=== PATIENT | male | born 1965 | race African-American/Black ===

== ENCOUNTER 2019-07-24 10:13 | Emergency (ER) | payer SELFPAY ==
[~2019-07-24] VITALS: Ht 165.1 cm; Wt 65.0 kg
[2019-07-24 11:50] LABS: HEMATOCRIT. 48.1 % (42.0-52.0); HEMOGLOBIN. 16.2 g/dL (14.0-18.0); MEAN CORPUSCULAR HEMOGLOBIN 30.6 pg (28.0-32.0); MEAN CORPUSCULAR VOLUME 90.6 fL (80.0-94.0); MEAN PLATELET VOLUME 8.7 fl (7.4-10.4); PLATELET 257 x1000/uL (130-400); RED BLOOD CELL COUNT 5.31 mill/uL (4.7-6.1); RED CELL DISTRIBUTION WIDTH 13.8 % (11.6-14.6)
[2019-07-24 11:57] LABS: CHLORIDE 104 mEq/L (98-107)
[2019-07-24 12:59] LABS: PLATELET ESTIMATE NORMAL
[2019-07-24 13:37] LABS: CLARITY URINE CLEAR (CLEAR); COLOR URINE YELLOW (YELLOW); KETONES URINE 2+ (NEGATIVE); LEUKOCYTE ESTERASE URINE NEGATIVE (NEGATIVE); NITRITE URINE NEGATIVE (NEGATIVE); OCCULT BLOOD URINE NEGATIVE (NEGATIVE); PROTEIN URINE NEGATIVE (NEGATIVE); UROBILINOGEN URINE 0.2 E.U./dL (0.2-1.0)
[2019-07-24 14:05] LABS: *AMPHETAMINES SCREEN URINE NEGATIVE (NEGATIVE); *BARBITURATES SCREEN URINE NEGATIVE (NEGATIVE); *BENZODIAZEPINES SCREEN URINE NEGATIVE (NEGATIVE); *COCAINE SCREEN URINE NEGATIVE (NEGATIVE); METHADONE URINE SCREEN NEGATIVE (NEGATIVE); OPIATES URINE SCREEN NEGATIVE (NEGATIVE); PHENCYCLIDINE URINE SCREEN NEGATIVE (NEGATIVE)
[2019-07-24 14:06] LABS: CANNABINOID URINE SCREEN NEGATIVE (NEGATIVE)
[2019-07-24] MEDS ORDERED: IBUPROFEN 400MG TABLET PO ONE (17:30)
[2019-07-24 18:12] VITALS: BP 100/62
== END 2019-07-24 18:14 | disposition home or self-care (01) ==
LOC: ER 10:13
DX: M94.0 Chondrocostal junction syndrome [Tietze] (principal); N17.0 Acute kidney failure with tubular necrosis; I25.10 Atherosclerotic heart disease of native coronary artery without angina pectoris; I73.9 Peripheral vascular disease, unspecified; R01.1 Cardiac murmur, unspecified; M43.9 Deforming dorsopathy, unspecified; E86.0 Dehydration; R07.89 Other chest pain; R79.0 Abnormal level of blood mineral; R82.4 Acetonuria; K21.9 Gastro-esophageal reflux disease without esophagitis; I51.9 Heart disease, unspecified; F19.10 Other psychoactive substance abuse, uncomplicated; Z95.1 Presence of aortocoronary bypass graft; Z98.890 Other specified postprocedural states; Z87.09 Personal history of other diseases of the respiratory system
CPT/HCPCS: 36415; 71045; 80053; 80305; 81003; 83605; 83735; 83880; 84484; 85025; 87040; 87086; 93005; 99284; Z7610

== ENCOUNTER 2024-03-26 23:12 | Inpatient (IN) | payer MEDICAID ==
[~2024-03-26] VITALS: Ht 172.7 cm; Wt 63.5 kg
[2024-03-27] MEDS: SODIUM CHLORIDE 0.9% 1,000 ML IV ONE ×2 (00:01→11:15)
[2024-03-27 00:08] LABS: HEMATOCRIT. 44.1 % (42.0-52.0); HEMOGLOBIN. 14.5 g/dL (14.0-18.0); MEAN CORPUSCULAR HEMOGLOBIN 30.1 pg (28.0-32.0); MEAN CORPUSCULAR HGB CONC 32.9 g/dL (31.0-37.0); MEAN CORPUSCULAR VOLUME 91.4 fL (80.0-94.0); MEAN PLATELET VOLUME 8.5 fl (7.4-10.4); PLATELET 196 x1000/uL (130-400); RED BLOOD CELL COUNT 4.82 mill/uL (4.7-6.1); RED CELL DISTRIBUTION WIDTH 13.7 % (11.6-14.6); WHITE BLOOD COUNT 22.2 x1000/uL (4.5-11.0)
[2024-03-27 00:09] LABS: DIFFERENTIAL COMMENT 1
[2024-03-27 00:15] LABS: CARBON DIOXIDE 27 mEq/L (21-32); CHLORIDE 101 mEq/L (98-107); POTASSIUM 3.4 mEq/L (3.5-5.1); SODIUM 135 mEq/L (136-145)
[2024-03-27 00:16] LABS: CALCIUM 8.8 mg/dL (8.7-10.4)
[2024-03-27 00:21] LABS: CREATININE 1.3 mg/dL (0.6-1.3); GLUCOSE 118 mg/dL (70-105); UREA NITROGEN BLOOD 11 mg/dL (9-23)
[2024-03-27 00:40] LABS: TROPONIN I HIGH SENSITIVITY 216 ng/L (3.0-53)
[2024-03-27 01:01] LABS: PLATELET ESTIMATE NORMAL
[2024-03-27] MEDS ORDERED: SODIUM CHLORIDE 0.9% 1,000 ML IV NR (02:00)
[2024-03-27 02:44] LABS: TROPONIN I HIGH SENSITIVITY 223 ng/L (3.0-53)
[2024-03-27 03:04] LABS: CLARITY URINE CLOUDY (CLEAR); COLOR URINE YELLOW (YELLOW); GLUCOSE URINE NEGATIVE (NEGATIVE); KETONES URINE 1+ (NEGATIVE); LEUKOCYTE ESTERASE URINE 2+ (NEGATIVE); NITRITE URINE POSITIVE (NEGATIVE); OCCULT BLOOD URINE 2+ (NEGATIVE); PH URINE 5.5 (4.5-8.0); PROTEIN URINE 1+ (NEGATIVE); SPECIFIC GRAVITY URINE 1.018 (1.005-1.030)
[2024-03-27 03:25] LABS: TROPONIN I HIGH SENSITIVITY 217 ng/L (3.0-53)
[2024-03-27 04:21] LABS: BACTERIA URINE 2+; SQUAMOUS EPITHELIAL CELL URINE NONE SEEN /lpf (RARE/1+)
[2024-03-27] MEDS: MIDODRINE HCL 5MG TABLET PO NR ×2 (05:40→12:53)
[2024-03-27] MEDS: CEFTRIAXONE 1GM/50ML 50 ML IV ONE (05:41)
[2024-03-27] MEDS: SODIUM CHLORIDE 0.9% 1,000 ML IV NR (06:37)
[2024-03-27] MEDS: NOREPINEPHRINE 8MG/250ML PMX 250 ML IV PRN (08:12)
[2024-03-27] MEDS ORDERED: MAGNESIUM/ALUMINUM HYDROXIDE/SIMETHICONE 30ML UDC PO PRN (08:30)
[2024-03-27] MEDS ORDERED: DOCUSATE SODIUM 100MG CAPSULE PO PRN (08:30)
[2024-03-27] MEDS ORDERED: CLONIDINE 0.1MG TABLET PO PRN (08:30)
[2024-03-27] MEDS ORDERED: ONDANSETRON HCL 4MG/2ML INJ IV PRN (08:30)
[2024-03-27] MEDS ORDERED: GUAIFENESIN 200MG/10ML SUGAR FREE UDC PO PRN (08:30)
[2024-03-27] MEDS ORDERED: ACETAMINOPHEN 325MG TABLET PO PRN ×2 (08:30)
[2024-03-27] MEDS ORDERED: IPRATROPIUM/ALBUTEROL 0.5-3(2.5)MG/3ML NEB HHN PRN (08:30)
[2024-03-27] MEDS: ASPIRIN 81MG EC TABLET PO SCH (09:12)
[2024-03-27] MEDS: ENOXAPARIN 40MG/0.4ML SYR SUBCUT SCH (09:17)
[2024-03-27] MEDS: VANCOMYCIN 1.5GM/250ML IV NR (09:18)
[2024-03-27 09:21] LABS: HEMOGLOBIN. 14.4 g/dL (14.0-18.0); MEAN CORPUSCULAR HEMOGLOBIN 30.5 pg (28.0-32.0); MEAN CORPUSCULAR HGB CONC 33.5 g/dL (31.0-37.0); MEAN PLATELET VOLUME 8.6 fl (7.4-10.4); PLATELET 192 x1000/uL (130-400); RED BLOOD CELL COUNT 4.72 mill/uL (4.7-6.1); RED CELL DISTRIBUTION WIDTH 13.7 % (11.6-14.6); WHITE BLOOD COUNT 18.4 x1000/uL (4.5-11.0)
[2024-03-27 09:28] LABS: CHLORIDE 107 mEq/L (98-107); POTASSIUM 3.6 mEq/L (3.5-5.1); SODIUM 138 mEq/L (136-145)
[2024-03-27 09:29] LABS: CALCIUM 8.2 mg/dL (8.7-10.4); CARBON DIOXIDE 22 mEq/L (21-32); DIFFERENTIAL COMMENT 1
[2024-03-27 09:34] LABS: CREATININE 0.9 mg/dL (0.6-1.3); GLUCOSE 107 mg/dL (70-105); UREA NITROGEN BLOOD 7 mg/dL (9-23)
[2024-03-27 09:36] LABS: ALANINE AMINOTRANSFERASE 27 IU/L (10-49); ASPARTATE AMINOTRANSFERASE 27 IU/L (<34); PROTEIN TOTAL 6.9 g/dL (6.0-8.3)
[2024-03-27] MEDS ORDERED: ATOR40TA70 PO (10:56)
[2024-03-27 10:58] LABS: PLATELET ESTIMATE NORMAL
[2024-03-27] MEDS: FAMOTIDINE 20MG TABLET PO SCH (11:00)
[2024-03-27] MEDS: LACTATED RINGERS 1,000 ML IV SCH (11:00)
[2024-03-27] MEDS: MIDODRINE HCL 5MG TABLET PO SCH (12:54)
[2024-03-27] MEDS: CEFTRIAXONE 2GM/50ML 50 ML IV SCH (14:53)
[2024-03-27 17:45] VITALS: BP 91/75; PULSE 90; RESP 11; TEMP 36.6404
[2024-03-27 18:00] VITALS: BP 91/75; PULSE 88; RESP 17; TEMP 36.61404; O2SAT 99
[2024-03-27 20:00] VITALS: PULSE 89; RESP 16; TEMP 36.61404; O2SAT 96
[2024-03-27] MEDS: ATORVASTATIN CALCIUM 40MG TABLET PO SCH (21:11)
[2024-03-27 22:00] VITALS: BP 89/60; PULSE 91; RESP 17; O2SAT 96
[2024-03-27] MEDS: VANCOMYCIN 750MG/150ML (BAXTER) IV SCH (22:18)
[2024-03-27 22:24] LABS: CREATINE KINASE MB FRACTION 2.6 ng/mL (0.5-3.6)
[2024-03-28] VITALS (11 sets, daily range): BP systolic 85–112; BP diastolic 53–70; PULSE 71–89; RESP 12–23; TEMP 36.00288–36.89184; O2SAT 96–99
[2024-03-28] MEDS ORDERED: TAMS-11 (01:55)
[2024-03-28] MEDS ORDERED: ASPI-1406 PO (01:55)
[2024-03-28 06:23] LABS: CARBON DIOXIDE 26 mEq/L (21-32); CHLORIDE 106 mEq/L (98-107); POTASSIUM 3.6 mEq/L (3.5-5.1); SODIUM 137 mEq/L (136-145)
[2024-03-28 06:24] LABS: CALCIUM 8.3 mg/dL (8.7-10.4)
[2024-03-28 06:28] LABS: CREATINE KINASE MB FRACTION 1.5 ng/mL (0.5-3.6)
[2024-03-28 06:29] LABS: CREATININE 0.9 mg/dL (0.6-1.3); GLUCOSE 100 mg/dL (70-105); TRIGLYCERIDE 122 mg/dL (0-150); UREA NITROGEN BLOOD 8 mg/dL (9-23)
[2024-03-28 06:30] LABS: ALBUMIN 3.8 g/dL (3.2-4.8); LDL CHOLESTEROL 76 mg/dL (5-100)
[2024-03-28 06:31] LABS: CHOLESTEROL 125 mg/dL (<200); CREATINE KINASE 114 IU/L (46-171); HDL CHOLESTEROL 25 mg/dL (>55)
[2024-03-28 06:32] LABS: HEMATOCRIT. 44.8 % (42.0-52.0); HEMOGLOBIN. 14.5 g/dL (14.0-18.0); MEAN CORPUSCULAR HEMOGLOBIN 29.6 pg (28.0-32.0); MEAN CORPUSCULAR HGB CONC 32.3 g/dL (31.0-37.0); MEAN CORPUSCULAR VOLUME 91.7 fL (80.0-94.0); MEAN PLATELET VOLUME 8.9 fl (7.4-10.4); PLATELET 200 x1000/uL (130-400); RED BLOOD CELL COUNT 4.89 mill/uL (4.7-6.1); RED CELL DISTRIBUTION WIDTH 13.8 % (11.6-14.6); T4 FREE 1.11 ng/dL (0.89-1.76); WHITE BLOOD COUNT 7.8 x1000/uL (4.5-11.0)
[2024-03-28 06:33] LABS: THYROID STIMULATING HORMONE 1.27 uIU/mL (0.55-4.78)
[2024-03-28 06:48] LABS: TROPONIN I HIGH SENSITIVITY 422 ng/L (3.0-53)
[2024-03-28 07:04] LABS: DIFFERENTIAL COMMENT 1
[2024-03-28] MEDS: SODIUM CHLORIDE 0.9% 1,000 ML IV SCH (10:01)
[2024-03-28] MEDS: CEFTRIAXONE 2GM/50ML 50 ML IV SCH (14:25)
[2024-03-28 17:21] LABS: PLATELET ESTIMATE NORMAL
[2024-03-29] VITALS (9 sets, daily range): BP systolic 85–117; BP diastolic 33–90; PULSE 66–95; RESP 13–18; TEMP 36.61404–36.83628; O2SAT 99–100
[2024-03-29 07:43] LABS: CALCIUM 8.5 mg/dL (8.7-10.4); CARBON DIOXIDE 23 mEq/L (21-32); CHLORIDE 108 mEq/L (98-107); SODIUM 139 mEq/L (136-145)
[2024-03-29 07:49] LABS: GLUCOSE 101 mg/dL (70-105); UREA NITROGEN BLOOD 6 mg/dL (9-23)
[2024-03-29 08:49] LABS: HEMATOCRIT. 41.3 % (42.0-52.0); HEMOGLOBIN. 13.3 g/dL (14.0-18.0); MEAN CORPUSCULAR HEMOGLOBIN 30.6 pg (28.0-32.0); MEAN CORPUSCULAR HGB CONC 32.1 g/dL (31.0-37.0); MEAN CORPUSCULAR VOLUME 95.3 fL (80.0-94.0); MEAN PLATELET VOLUME 8.9 fl (7.4-10.4); PLATELET 211 x1000/uL (130-400); RED BLOOD CELL COUNT 4.34 mill/uL (4.7-6.1); RED CELL DISTRIBUTION WIDTH 14.4 % (11.6-14.6); WHITE BLOOD COUNT 6.7 x1000/uL (4.5-11.0)
[2024-03-29 08:50] LABS: DIFFERENTIAL COMMENT 1
[2024-03-29 09:38] LABS: TROPONIN I HIGH SENSITIVITY 225 ng/L (3.0-53)
[2024-03-29 16:27] LABS: CLARITY URINE CLEAR (CLEAR); COLOR URINE YELLOW (YELLOW); GLUCOSE URINE NEGATIVE (NEGATIVE); KETONES URINE NEGATIVE (NEGATIVE); LEUKOCYTE ESTERASE URINE 1+ (NEGATIVE); NITRITE URINE NEGATIVE (NEGATIVE); OCCULT BLOOD URINE 1+ (NEGATIVE); PH URINE 6.5 (4.5-8.0); PROTEIN URINE NEGATIVE (NEGATIVE); SPECIFIC GRAVITY URINE 1.008 (1.005-1.030); UROBILINOGEN URINE 0.2 E.U./dL (0.2-1.0)
[2024-03-29 16:43] LABS: SQUAMOUS EPITHELIAL CELL URINE NONE SEEN /lpf (RARE/1+)
[2024-03-29 16:44] LABS: BACTERIA URINE FEW; YEAST URINE NONE SEEN
[2024-03-29 17:51] LABS: PLATELET ESTIMATE NORMAL
[2024-03-30] VITALS: BP 90/52; PULSE 75; RESP 18; TEMP 36.72516; O2SAT 98
[2024-03-30 04:00] VITALS: BP 87/53; PULSE 67; RESP 18; TEMP 36.3918; O2SAT 100
[2024-03-30 08:00] VITALS: BP 99/57; PULSE 67; RESP 18; TEMP 36.3918; O2SAT 99
[2024-03-30 09:46] LABS: CALCIUM 9.4 mg/dL (8.7-10.4); CARBON DIOXIDE 27 mEq/L (21-32)
[2024-03-30 09:47] LABS: HEMATOCRIT 44.3 % (42.0-52.0); HEMOGLOBIN 14.6 g/dL (14.0-18.0); MEAN CORPUSCULAR HEMOGLOBIN 30.4 pg (28.0-32.0); PLATELET 258 x1000/uL (130-400); RED BLOOD CELL COUNT 4.81 mill/uL (4.7-6.1); RED CELL DISTRIBUTION WIDTH 13.8 % (11.6-14.6); WHITE BLOOD COUNT 8.5 x1000/uL (4.5-11.0)
[2024-03-30 09:51] LABS: CREATININE 1.1 mg/dL (0.6-1.3); GLUCOSE 152 mg/dL (70-105); UREA NITROGEN BLOOD 8 mg/dL (9-23)
[2024-03-30 09:55] LABS: CHLORIDE 103 mEq/L (98-107); SODIUM 138 mEq/L (136-145)
[2024-03-30 10:01] LABS: TROPONIN I HIGH SENSITIVITY 170 ng/L (3.0-53)
[2024-03-30 12:00] VITALS: BP 85/52; PULSE 80; RESP 18; TEMP 36.55848; O2SAT 99
[2024-03-30] MEDS: MIDODRINE HCL 5MG TABLET PO SCH (14:39)
[2024-03-30 16:00] VITALS: BP 105/65; PULSE 71; RESP 18; TEMP 36.3918; O2SAT 100
[2024-03-30] MEDS ORDERED: SODIUM CHLORIDE 0.9% 500 ML IV ONE (16:20)
[2024-03-30 20:00] VITALS: BP_SYST 118; BP_SYST 124; BP_SYST 125; BP_DIAS 55; BP_DIAS 65; BP_DIAS 67; PULSE 70; RESP 18; TEMP 36.50292; O2SAT 100
[2024-03-31] VITALS: BP 98/53; PULSE 70; RESP 18; TEMP 36.3918; O2SAT 99
[2024-03-31 04:00] VITALS: BP 95/56; PULSE 71; RESP 18; TEMP 36.50292; O2SAT 99
[2024-03-31 07:27] LABS: CALCIUM 9.4 mg/dL (8.7-10.4); CARBON DIOXIDE 28 mEq/L (21-32); CHLORIDE 103 mEq/L (98-107); POTASSIUM 4.2 mEq/L (3.5-5.1); SODIUM 138 mEq/L (136-145)
[2024-03-31 07:33] LABS: CREATININE 1.1 mg/dL (0.6-1.3); GLUCOSE 98 mg/dL (70-105); UREA NITROGEN BLOOD 10 mg/dL (9-23)
[2024-03-31 07:37] LABS: HEMOGLOBIN 14.4 g/dL (14.0-18.0); MEAN CORPUSCULAR HEMOGLOBIN 29.9 pg (28.0-32.0); MEAN CORPUSCULAR HGB CONC 32.9 g/dL (31.0-37.0); PLATELET 258 x1000/uL (130-400); RED BLOOD CELL COUNT 4.83 mill/uL (4.7-6.1); RED CELL DISTRIBUTION WIDTH 13.7 % (11.6-14.6); WHITE BLOOD COUNT 9.8 x1000/uL (4.5-11.0)
[2024-03-31 08:00] VITALS: BP 102/42; PULSE 81; RESP 18; TEMP 36.3918; O2SAT 98
[2024-03-31 12:00] VITALS: BP 90/62; PULSE 73; RESP 18; TEMP 36.28068; O2SAT 98
[2024-03-31] MEDS ORDERED: SULF1TAB48 MT (15:12)
[2024-03-31 15:52] VITALS: BP 117/50; PULSE 79; TEMP 96.9; O2SAT 97
[2024-03-31 16:00] VITALS: BP 117/50; PULSE 79; RESP 18; TEMP 36.89184; O2SAT 99
== END 2024-03-31 18:00 | disposition home or self-care (01) | DRG 720 ==
LOC: ER 23:12 → 5EST 03-27 00:43 → EDBEDREQ 03-27 00:54 → EDBEDREQSVC 03-27 07:46 → 7WST 03-29 19:38
PROVIDERS: ADMIT Preventive Medicine Clinical Informatics; ATTEND Preventive Medicine Clinical Informatics
DX: A41.9 Sepsis, unspecified organism (principal); R65.21 Severe sepsis with septic shock; I21.A1 Myocardial infarction type 2; N17.9 Acute kidney failure, unspecified; I10 Essential (primary) hypertension; Z95.2 Presence of prosthetic heart valve; I70.8 Atherosclerosis of other arteries; Z95.1 Presence of aortocoronary bypass graft; I25.10 Atherosclerotic heart disease of native coronary artery without angina pectoris; F41.9 Anxiety disorder, unspecified; K21.9 Gastro-esophageal reflux disease without esophagitis; K59.09 Other constipation; M43.6 Torticollis; N40.0 Benign prostatic hyperplasia without lower urinary tract symptoms; N39.0 Urinary tract infection, site not specified; E78.5 Hyperlipidemia, unspecified; Z16.12 Extended spectrum beta lactamase (ESBL) resistance; Z79.82 Long term (current) use of aspirin; Z82.3 Family history of stroke; Z79.899 Other long term (current) drug therapy
CPT/HCPCS: 36415; 71045; 74176; 80048; 80053; 80061; 80202; 81003; 82040; 82533; 82550; 82553; 83605; 83735; 83880; 84145; 84439; 84443; 84484; 85025; 85027; 85379; 87077; 87186; 93005; 93306; 93880; 99291; J0696; J1650; J3370; J3490; J7030